=== PATIENT | male | born 1960 | race Caucasian/White ===

== ENCOUNTER 2016-05-14 00:09 | Inpatient (IN) | payer OTHER ==
[~2016-05-14] VITALS: Ht 182.9 cm; Wt 138.8 kg
[~2016-05-14 00:09] MED LIST: CYCL10TA2 PO; HYDR-2672 PO; METH4TAB2 PO; Oxycodone Hcl/Acetaminophen PO; PRED-220 PO
--- NOTE | 2016-05-14 00:41 | PHYS DOC ---
Past Medical History Past Medical History: Other Additional Past Medical Histor: back pain Past Surgical History: No Surgical History Alcohol Use: None Drug Use: None Adult General Chief Complaint Chief Complaint: BACK PAIN OR INJURY HPI HPI Patient is a 55 year old male who presents with complaint of back spasms. Patient states his symptoms started earlier this morning. Patient states that he was doing his normal morning routine and did not make any sudden movements, however he started to have sudden tightness in his low back. Patient denies any falls. Patient states he had history of similar pain 2 years ago and was seen in the emergency department at [facility]. Patient states that due to the severity of symptoms the patient had to be admitted for further treatment. The patient states that he was found to have bone spurring and narrowing of his disc spaces on his workup but did not have any evidence of cord compression. Patient saw Dr. Cameron of physical and rehabilitation medicine who referred him to a neurosurgeon. Patient states that he was told at that time that his condition did not require surgery. After treatment with muscle relaxants and anti-inflammatories, the patient's symptoms resolved and he has not had any further episodes until earlier today. Patient states while at rest his pain as 4 out of 10, however worsens with sudden movements. Patient states that he took 3 [id number] naproxen earlier this evening before arrival with mild improvement in symptoms. Patient denies any radiation of pain and states that is localized in his left lower back. Patient is not experiencing any foot drop, loss of bowel or bladder control, or loss of feeling in his groin. Review of Systems Review of Systems Constitutional: Denies fever or chills [] Eyes: Denies change in visual acuity, redness, or eye pain [] HENT: Denies nasal congestion or sore throat [] Respiratory: Denies cough or shortness of breath [] Cardiovascular: No additional information not addressed in HPI [] GI: Denies abdominal pain, nausea, vomiting, bloody stools or diarrhea [] : Denies dysuria or hematuria [] Musculoskeletal: Back pain [] Integument: Denies rash or skin lesions [] Neurologic: Denies headache, focal weakness or sensory changes [] Endocrine: Denies polyuria or polydipsia [] Current Medications Current Medications Current Medications Medications (Trade) Dose Ordered Sig/Martha Start Time Stop Time Status Last Admin Dose Admin Acetaminophen/ Hydrocodone Bitart (Lortab 7.5/325) 1 tab 1X ONCE 05/14/16 01:45 05/14/16 01:46 DC 05/14/16 01:50 1 TAB Orphenadrine Citrate (Norflex) 60 mg 1X ONCE 05/14/16 00:45 05/14/16 00:46 DC 05/14/16 01:00 60 MG Allergies Allergies Allergies Coded Allergies Type Severity Reaction Last Updated Verified No Known Drug Allergies 03/25/15 No Physical Exam Physical Exam Constitutional: Alert, obese, afebrile, appears in mild to moderate discomfort. [] HENT: Normocephalic, atraumatic, bilateral external ears normal, oropharynx moist, no oral exudates, nose normal. [] Eyes: PERRLA, EOMI, conjunctiva normal, no discharge. [] Neck: Normal range of motion, no tenderness, supple, no stridor. [] Cardiovascular:Heart rate regular rhythm, no murmur [] Lungs & Thorax: Bilateral breath sounds clear to auscultation [] Abdomen: Bowel sounds normal, soft, no tenderness, no masses, no pulsatile masses. [] Skin: Warm, dry, no erythema, no rash. [] Back: Left paraspinous lower lumbar muscle tenderness to palpation with spasm, no midline tenderness, no flank ecchymosis, negative straight leg test. [] Extremities: No tenderness, no cyanosis, no clubbing, ROM intact, no edema. [] Neurologic: Alert and oriented X 3, normal motor function, normal sensory function, no focal deficits noted. [] Current Patient Data Vital Signs Vital Signs Date Time Temp Pulse Resp B/P Pulse Ox O2 Delivery O2 Flow Rate FiO2 05/14/16 02:10 70 177/79 94 Room Air 05/14/16 01:50 16 05/14/16 00:15 98.2 98.2 EKG EKG Not performed [] Radiology/Procedures Radiology/Procedures Not performed [] Course & Med Decision Making Course & Med Decision Making Pertinent Labs and Imaging studies reviewed. (See chart for details) Patient was treated with IM Norflex and and oral Lortab. The patient did not receive any relief in his symptoms. Patient is unable to walk under his own power due to pain. The patient states that this happened to him before and that he is not comfortable going home in his current state as he experienced a great deal of discomfort and pain with his previous episode. Since patient is not showing any response to treatment, the patient will be admitted for further treatment in hospital. Patient was admitted to Dr. Wills and a consult was placed to Dr. Cameron to follow with patient in hospital. Dragon Disclaimer Dragon Disclaimer This electronic medical record was generated, in whole or in part, using a voice recognition dictation system. Departure Departure Impression: Primary Impression: Intractable back pain Disposition: ADMITTED INPATIENT Admitting Physician: Other Condition: STABLE Referrals: NO PCP (PCP) WILLIAM VIDALES MD May 14, 2016 00:41
[2016-05-14] MEDS ORDERED: ORPHENADRINE CITRATE 60 MG/2 ML VIAL. IM ONE (00:45)
[2016-05-14] MEDS ORDERED: HYDROCODONE/APAP 7.5/325MG TABLET. PO ONE (01:45)
[2016-05-14] MEDS ORDERED: ONDANSETRON PF 4 MG/2 ML VIAL. IV PRN ×2 (02:30→14:00)
[2016-05-14] MEDS ORDERED: FENTANYL PF 100 MCG/2 ML VIAL. IV PRN (02:30)
[2016-05-14] MEDS ORDERED: ACETAMINOPHEN 325 MG TABLET. PO PRN ×2 (02:30→14:00)
[2016-05-14] MEDS ORDERED: CYCLOBENZAPRINE 10 MG TABLET. PO PRN (02:30)
[2016-05-14] MEDS: IV NORMAL SALINE 1000ML BAG 1,000 ML IV SCH ×3 (03:05→23:36)
[2016-05-14 03:30] VITALS: BP 155/81
[2016-05-14 07:15] VITALS: BP 89/59
[2016-05-14] MEDS ORDERED: HYDROCODONE/APAP 7.5/325MG TABLET. PO PRN (09:15)
[2016-05-14 10:54] VITALS: BP 148/83
[2016-05-14] MEDS: methylPREDNISolone 4 MG TABLET. PO SCH ×4 (11:15→20:32)
[2016-05-14] MEDS: CYCLOBENZAPRINE 10 MG TABLET. PO SCH ×3 (11:15→21:51)
--- NOTE | 2016-05-14 13:54 | PDOC1 ---
History and Physical Date of Admission Date of Admission 05/14/16 Identification/Chief Complaint Chief Complaint lower back pain Problems: Source Source: Chart review, Patient History of Present Illness History of Present Illness Patient is a 55 year old male who presents with complaint of back spasms. Patient states his symptoms started yesterday. Patient states that he was doing his normal morning routine and did not make any sudden movements, however he started to have sudden tightness in his low back. Patient denies any falls. Patient states he had history of similar pain 2 years ago and was seen in the emergency department at [facility]. since then, no back pain till now. First time of back pain was 10ys ago and he only had two times of episodes before. never had back sx done. Patient states that he took 3 [id number] naproxen earlier this evening before arrival with mild improvement in symptoms. Patient denies any radiation of pain and states that is localized in his left lower back. Patient is not experiencing any foot drop, loss of bowel or bladder control, or loss of feeling in his groin. Past Medical History Cardiovascular: No pertinent hx Pulmonary: No pertinent hx Psych: No pertinent hx Rheumatologic: No pertinent hx Infectious disease: No pertinent hx Renal/: No pertinent hx Past Surgical History Past Surgical History: No pertinent history Family History Family History: No Significant Social History Smoke: No ALCOHOL: none Drugs: None Current Problem List Problem List Problems Medical Problems: (1) Intractable back pain Status: Acute Current Medications Current Medications Current Medications Medications (Trade) Dose Ordered Sig/Martha Start Time Stop Time Status Last Admin Dose Admin Acetaminophen (Tylenol) 650 mg PRN Q4HRS PRN 05/14/16 02:30 05/15/16 02:29 Acetaminophen/ Hydrocodone Bitart (Lortab 7.5/325) 1 tab PRN Q6HRS PRN 05/14/16 09:15 Cyclobenzaprine HCl (Flexeril) 10 mg Q8HRS 05/14/16 10:00 05/14/16 11:15 10 MG Fentanyl Citrate 50 mcg 50 mcg PRN Q2HR PRN 05/14/16 02:30 05/15/16 02:29 Methylprednisolone (Medrol) 4 mg DAILY 05/19/16 09:00 05/19/16 09:01 Ondansetron HCl (Zofran) 4 mg PRN Q8HRS PRN 05/14/16 02:30 05/15/16 02:29 Orphenadrine Citrate (Norflex) 60 mg 1X ONCE 05/14/16 00:45 05/14/16 00:46 DC 05/14/16 01:00 60 MG Sodium Chloride (Iv Sodium Chloride 0.9% 1000ml Bag) 1,000 ml @ 100 mls/hr Q10H 05/14/16 02:30 05/15/16 02:29 05/14/16 13:21 100 MLS/HR Allergies Allergies Allergies Coded Allergies Type Severity Reaction Last Updated Verified No Known Drug Allergies 03/25/15 No ROS Review of System CONSTITUTIONAL: No fever or chills EYES: No recent changes SKIN: No rash or itching CARDIOVASCULAR: No chest pain, syncope, palpitations, or edema RESPIRATORY: No SOB or cough GASTROINTESTINAL: No nausea, vomiting or abdominal pain NEUROLOGICAL: No headaches or weakness ENDOCRINE: No cold or heat intolerance GENITOURINARY: No urgency or frequency of urination MUSCULOSKELETAL: No back pain or joint pain LYMPHATICS: No enlarged lymph nodes PSYCHIATRIC: No anxiety or depression Physical Exam Physical Exam GEN.: No apparent distress. Alert and oriented. HEENT: Head is normocephalic, atraumatic NECK: Supple. LUNGS: Clear to auscultation. HEART: RRR, S1, S2 present. Peripheral pulses intact ABDOMEN: Soft, nontender. Positive bowel sounds. EXTREMITIES: Without any cyanosis. NEUROLOGIC: Normal speech, normal tone PSYCHIATRIC: Normal affect, normal mood. SKIN: No ulcerations Vitals Vitals Vital Signs Date Time Temp Pulse Resp B/P Pulse Ox O2 Delivery O2 Flow Rate FiO2 05/14/16 10:54 96.6 70 20 148/83 96 Room Air 96.6 VTE Prophylaxis Ordered VTE Prophylaxis Devices: Yes VTE Pharmacological Prophylaxi: Yes Assessment/Plan Assessment/Plan 1. acute lower back pain, 2/2 muscle spasm likely 2. h/o back pain 3. obesity BMI 41 plan: 1. dr. Cameron consulted 2. pain control 3. PTOT on medrol as per dr. Cameron , taper labs tmr hope dc in 1-2 ds dvt ppx BLADIMIR GOLDMAN MD May 14, 2016 13:54
[2016-05-14] MEDS ORDERED: MORPHINE SULFATE 4 MG/ML DISP.SYRIN. IV PRN (14:00)
[2016-05-14] MEDS ORDERED: HYDROCODONE/APAP 10/325 TABLET. PO PRN (14:00)
[2016-05-14 15:00] VITALS: BP 137/85
[2016-05-14] MEDS ORDERED: ENOXAPARIN 40 MG/0.4 ML DISP.SYRIN. SQ SCH (15:00)
[2016-05-14 19:00] VITALS: BP 155/73
[2016-05-14 23:00] VITALS: BP 133/76
--- NOTE | 2016-05-15 01:42 | ACF ---
Admission Forms Criteria BACK PAIN Clinical Indications for Admission to Inpatient Care (Place 'X' for any and all applicable criteria): Admission is indicated for ANY ONE of the following (1)(2)(3)(4)(5)(6): [X]I. Inpatient admission required rather than observation care (Also use Back Pain: Observation Care as appropriate) because of ANY ONE of the following [ ]a) Severe pain requiring acute inpatient management [ ]b) Immediate inpatient surgery [X]c) Other condition, treatment or monitoring requiring inpatient admission [ ]II. Spine fracture with significant damage or threat of damage to vertebral column or spinal cord [ ]III. Progressive or severe neurologic deficit [ ]IV. Suspected spinal infection (e.g., epidural abscess, vertebral osteomyelitis)(10) [ ]V. Suspected cause requires inpatient treatment (eg, aortic dissection) [ ]. Cauda equina syndrome as indicated by ANY ONE of the following (9): [ ]a) Bowel dysfunction [ ]b) Bladder dysfunction [ ]c) Saddle anesthesia [ ]d) Neurologic abnormality suggesting cauda equina impingement Extended stay beyond goal length of stay may be needed for (3)(25): [ ]a) Spinal cord compression from stenosis, disk, or tumor (8)(9) [ ]b) Traumatic or pathologic vertebral fracture (33) [ ]c) Vertebral infection(10) [ ]d) Severe pain that is difficult to control [ ]e) Older patients(65 years or older) The original [employer] content created by [employer] has been revised. The portions of the content which have been revised are identified through the use of italic text or in bold, and [facility] has neither reviewed nor approved the modified material. All other unmodified content is copyright [employer]. Please see references footnoted in the original [facility] edition 2016 Admission Criteria Met?: Yes DIONISIO AVERY May 15, 2016 01:42
[2016-05-15 02:53] VITALS: BP 99/53
[2016-05-15] MEDS: CYCLOBENZAPRINE 10 MG TABLET. PO SCH ×2 (05:45→13:47)
[2016-05-15 06:05] LABS: BASO % 0 % (0-3); EOS % 0 % (0-3); HEMATOCRIT 43.5 % (39.0-53.0); HEMOGLOBIN 14.5 g/dL (13.0-17.5); LYMPH # 1.4 x10^3/uL (1.0-4.8); LYMPH % 9 % (24-48); MEAN CORPUSCULAR HEMOGLOBIN 31 pg (25-35); MEAN CORPUSCULAR HGB CONC 33 g/dL (31-37); MEAN CORPUSCULAR VOLUME 92 fL (79-100); MONO % 4 % (0-9); NEUT % 87 % (31-73); PLATELET COUNT 179 x10^3/uL (140-400); RED BLOOD COUNT 4.73 x10^6/uL (4.30-5.70); WHITE BLOOD COUNT 14.7 x10^3/uL (4.0-11.0)
[2016-05-15 06:39] LABS: CALCIUM 8.5 mg/dL (8.5-10.1); CREATININE 0.8 mg/dL (0.7-1.3); GFR 101.1; POTASSIUM 4.6 mmol/L (3.5-5.1)
[2016-05-15 07:00] VITALS: BP 146/83
--- NOTE | 2016-05-15 08:33 | CONS ---
DATE OF CONSULTATION: 05/14/2016 ATTENDING PHYSICIAN: Dr. Wills. The patient was seen at the request of Dr. Wills for rehab evaluation. HISTORY OF PRESENT ILLNESS: This is a 55-year-old, right-handed male, known to me in the past. The patient with lower back pain from degenerative disk disease at L5-S1 and herniated disk at L4-L5. I saw him in 2014. He had seen Dr. Macdonald and no need for any surgical treatment. He got better. The patient started having lower back muscles spasm with associated pain without any specific injury starting on 05/13/2016. The patient denies any radiation of pain to the extremities or any trouble with his bowel or bladder control. He had significant difficulty to get around, so he was admitted through the Emergency Room last night. ALLERGIES: The patient is not known allergic to any medication. PHYSICAL EXAMINATION: Today revealed a middle-aged male. He is alert, oriented to time, place, person and circumstance, and follows commands appropriately. Moves all 4 extremities voluntarily where he had 4+/5 grade muscle strength and deep tendon reflexes are 2+ and symmetrical and he had equal perception of touch and pinprick sensation bilaterally. He had painful limited movements of his lumbar spine with lumbar paraspinal muscle spasm and minimal tenderness to palpation over sacroiliac joint area and straight-leg raising test is negative bilaterally. He is independent with bed mobility and transfers despite pain and he walked using a roller walker with lumbar corset on. His skin is intact at this time. ASSESSMENT: Mobility and self-care limitation from ____ lower back pain from degenerative disk disease of lumbar vertebrae, without any clinical evidence of ongoing lumbar radiculopathy. RECOMMENDATION: To start him back on steroid Dosepak and make Flexeril routinely and continue hydrocodone. I have reviewed with him home exercise program, continue using lumbar corset while up. If he feels comfortable, to let him go home this evening or tomorrow to be followed on outpatient basis. To hold off MRI scan at present time as he is not having any radiating pain. Dr. Wills, appreciate asking me to participate in the care of this interesting patient. I will be glad to follow him with you as needed for his rehabilitation. JULIAN COLLAZO MD DR: USAMA/hailey JOB#: [id number] / [id number]
[2016-05-15] MEDS: methylPREDNISolone 4 MG TABLET. PO SCH ×3 (08:35→13:01)
--- NOTE | 2016-05-15 10:01 | PDOC ---
PROGRESS NOTES Subjective Subjective He admits continued low back pain interfering with his mobility and c/o swelling of his body and face. Objective Objective Vital Signs Date Time Temp Pulse Resp B/P Pulse Ox O2 Delivery O2 Flow Rate FiO2 05/15/16 07:00 97.5 73 16 146/83 95 Room Air 97.5 Intake and Output 05/15/16 07:00 Intake Total 2270 ml Balance 2270 ml Intake Oral 2270 ml # Voids 8 Physical Exam Physical Exam He had tenderness to palpation over left sacroiliac joint and painfully limited movements of low back and no change with his neurological examination. Assessment Assessment Problems Medical Problems: (1) Intractable back pain Status: Acute Plan Plan of Care To obtain follow up mri scan and depending on discharge to home after words. He is hesitant about injections as they irritated his back more 13 months ago. Comment Review of Relevant I have reviewed the following items monty (where applicable) has been applied. Labs Laboratory Tests Test 05/15/16 05:35 White Blood Count 14.7x10^3/uL (4.0-11.0) Red Blood Count 4.73x10^6/uL (4.30-5.70) Hemoglobin 14.5g/dL (13.0-17.5) Hematocrit 43.5% (39.0-53.0) Mean Corpuscular Volume 92fL (79-100) Mean Corpuscular Hemoglobin 31pg (25-35) Mean Corpuscular Hemoglobin Concent 33g/dL (31-37) Red Cell Distribution Width 13.0% (11.5-14.5) Platelet Count 179x10^3/uL (140-400) Neutrophils (%) (Auto) 87% (31-73) Lymphocytes (%) (Auto) 9% (24-48) Monocytes (%) (Auto) 4% (0-9) Eosinophils (%) (Auto) 0% (0-3) Basophils (%) (Auto) 0% (0-3) Neutrophils # (Auto) 12.7x10^3uL (1.8-7.7) Lymphocytes # (Auto) 1.4x10^3/uL (1.0-4.8) Monocytes # (Auto) 0.5x10^3/uL (0.0-1.1) Eosinophils # (Auto) 0.0x10^3/uL (0.0-0.7) Basophils # (Auto) 0.0x10^3/uL (0.0-0.2) Sodium Level 142mmol/L (136-145) Potassium Level 4.6mmol/L (3.5-5.1) Chloride Level 107mmol/L (98-107) Carbon Dioxide Level 26mmol/L (21-32) Anion Gap 9 (6-14) Blood Urea Nitrogen 12mg/dL (8-26) Creatinine 0.8mg/dL (0.7-1.3) Estimated GFR (Cockcroft-Gault) 101.1 Glucose Level 174mg/dL (70-99) Calcium Level 8.5mg/dL (8.5-10.1) Laboratory Tests Test 05/15/16 05:35 White Blood Count 14.7x10^3/uL (4.0-11.0) Red Blood Count 4.73x10^6/uL (4.30-5.70) Hemoglobin 14.5g/dL (13.0-17.5) Hematocrit 43.5% (39.0-53.0) Mean Corpuscular Volume 92fL (79-100) Mean Corpuscular Hemoglobin 31pg (25-35) Mean Corpuscular Hemoglobin Concent 33g/dL (31-37) Red Cell Distribution Width 13.0% (11.5-14.5) Platelet Count 179x10^3/uL (140-400) Neutrophils (%) (Auto) 87% (31-73) Lymphocytes (%) (Auto) 9% (24-48) Monocytes (%) (Auto) 4% (0-9) Eosinophils (%) (Auto) 0% (0-3) Basophils (%) (Auto) 0% (0-3) Neutrophils # (Auto) 12.7x10^3uL (1.8-7.7) Lymphocytes # (Auto) 1.4x10^3/uL (1.0-4.8) Monocytes # (Auto) 0.5x10^3/uL (0.0-1.1) Eosinophils # (Auto) 0.0x10^3/uL (0.0-0.7) Basophils # (Auto) 0.0x10^3/uL (0.0-0.2) Sodium Level 142mmol/L (136-145) Potassium Level 4.6mmol/L (3.5-5.1) Chloride Level 107mmol/L (98-107) Carbon Dioxide Level 26mmol/L (21-32) Anion Gap 9 (6-14) Blood Urea Nitrogen 12mg/dL (8-26) Creatinine 0.8mg/dL (0.7-1.3) Estimated GFR (Cockcroft-Gault) 101.1 Glucose Level 174mg/dL (70-99) Calcium Level 8.5mg/dL (8.5-10.1) Medications Current Medications Orphenadrine Citrate (Norflex) 60 mg 1X ONCE IM Last administered on 01:00; Start 05/14/16 at 00:45; Stop 05/14/16 at 00:46; Status DC Acetaminophen/ Hydrocodone Bitart (Lortab 7.5/325) 1 tab 1X ONCE PO Last administered on 05/14/16 01:50; Start 05/14/16 at 01:45; Stop 05/14/16 at 01:46 ; Status DC Ondansetron HCl (Zofran) 4 mg PRN Q8HRS PRN IV NAUSEA/VOMITING; Start 05/14/16 at 02:30; Stop 05/15/16 at 02:29; Status DC Fentanyl Citrate 50 mcg 50 mcg PRN Q2HR PRN IV PAIN; Start 05/14/16 at 02:30; Stop 05/15/16 at 02:29; Status DC Sodium Chloride (Iv Sodium Chloride 0.9% 1000ml Bag) 1,000 ml @ 100 mls/hr Q10H IV Last administered on 05/14/16 23:36; Start 05/14/16 at 02:30; Stop at 02:29; Status DC Acetaminophen (Tylenol) 650 mg PRN Q4HRS PRN PO FEVER; Start 05/14/16 at 02:30 ; Stop 05/15/16 at 02:29; Status DC Cyclobenzaprine HCl (Flexeril) 10 mg PRN Q8HRS PRN PO MUSCLE SPASMS Last administered on 05/14/16 04:14; Start 05/14/16 at 02:30; Stop 05/14/16 at 10:00 ; Status DC Cyclobenzaprine HCl (Flexeril) 10 mg Q8HRS PO Last administered on 05/15/16 05 :45; Start 05/14/16 at 10:00 Acetaminophen/ Hydrocodone Bitart (Lortab 7.5/325) 1 tab PRN Q6HRS PRN PO moderate pain Last administered on 05/14/16 21:51; Start 05/14/16 at 09:15 Methylprednisolone (Medrol) 8 mg BID PO Last administered on 05/14/16 20:32; Start 05/14/16 at 10:00; Stop 05/14/16 at 21:01; Status DC Methylprednisolone (Medrol) 4 mg BIDPCLD PO Last administered on 05/14/16 16: 46; Start 05/14/16 at 12:30; Stop 05/14/16 at 17:31; Status DC Methylprednisolone (Medrol) 4 mg TIDPC PO Last administered on 05/15/16 08:35 ; Start 05/15/16 at 08:30; Stop 05/15/16 at 17:31 Methylprednisolone (Medrol) 8 mg QHS PO ; Start 05/15/16 at 21:00; Stop at 21:01 Methylprednisolone (Medrol) 4 mg QIDAFTMEAL PO ; Start 05/16/16 at 09:00; Stop 05/16/16 at 21:01 Methylprednisolone (Medrol) 4 mg TID PO ; Start 05/17/16 at 09:00; Stop at 21:01 Methylprednisolone (Medrol) 4 mg BID PO ; Start 05/18/16 at 09:00; Stop at 21:01 Methylprednisolone (Medrol) 4 mg DAILY PO ; Start 05/19/16 at 09:00; Stop at 09:01 Acetaminophen/ Hydrocodone Bitart (Lortab 10/325) 1 tab PRN Q6HRS PRN PO ; Start 05/14/16 at 14:00; Stop 05/14/16 at 14:00; Status DC Acetaminophen (Tylenol) 650 mg PRN Q6HRS PRN PO MILD PAIN / TEMP; Start at 14:00 Ondansetron HCl (Zofran) 4 mg PRN Q6HRS PRN IV NAUSEA/VOMITING; Start 05/14/16 at 14:00 Morphine Sulfate 4 mg PRN Q2HR PRN IV PAIN; Start 05/14/16 at 14:00 Enoxaparin Sodium (Lovenox 40mg Syringe) 40 mg Q24H SQ ; Start 05/14/16 at 15:00 Active Scripts Active Cyclobenzaprine Hcl 10 Mg Tablet 10 Mg PO PRN Q6HRS PRN Reported Prednisone 10 Mg Tablet 10 Mg PO DAILY 5 Days Prednisone 10 Mg Tablet 20 Mg PO DAILY 3 Days Prednisone 10 Mg Tablet 30 Mg PO DAILY 1 Days Medrol (Methylprednisolone) 4 Mg Tab.ds.pk 1 Pkg PO UD Hydrocodone-Apap 10-325 (Hydrocodone Bit/Acetaminophen) 1 Each Tablet 1 Tab PO PRN Q6HRS PRN Vitals/I & O Vital Sign - Last 24 Hours 05/14/16 05/14/16 05/14/16 05/14/16 10:54 15:00 19:00 20:05 Temp 96.6 96.8 97.7 96.6 96.8 97.7 Pulse 70 71 81 Resp 20 18 21 B/P 148/83 137/85 155/73 Pulse Ox 96 95 94 O2 Delivery Room Air Room Air Room Air Room Air 05/14/16 05/14/16 05/14/16 05/15/16 21:51 22:58 23:00 02:53 Temp 97.7 97.3 97.7 97.3 Pulse 76 71 Resp B/P 133/76 99/53 Pulse Ox 94 93 93 95 O2 Delivery Room Air Room Air Room Air Room Air 05/15/16 07:00 Temp 97.5 97.5 Pulse 73 Resp 16 B/P 146/83 Pulse Ox 95 O2 Delivery Room Air Intake and Output 05/14/16 05/14/16 05/15/16 15:00 23:00 07:00 Intake Total 760 ml 860 ml 650 ml Balance 760 ml 860 ml 650 ml JULIAN COLLAZO MD May 15, 2016 10:01
[2016-05-15 10:47] VITALS: BP 162/94
--- NOTE | 2016-05-15 11:18 | RAD ---
PROCEDURE MRI lumbar spine without contrast. HISTORY Low back pain with spasms, left leg radiculopathy, left lumbar radiculitis TECHNIQUE Sagittal and axial T1 and T2 and sagittal STIR images were acquired of the lumbar spine. Contrast: None COMPARISON March 26, 2015 FINDINGS Lumbar vertebral body stature and AP alignment are preserved. Conus terminates normally L1. There is mild degenerative disc disease at L4-L5 and L5-S1 and mild disc desiccation L2-3. There is no significant focal marrow edema. There is again posterior annular tear L4-5. L2-3: Spinal canal and neural foramina are adequate. L3-4: There is again mild facet hypertrophic change and buckling of the ligamentum flavum. Spinal canal and neural foramina remain adequate. L4-5: There is again mild facet hypertrophic change and buckling of the ligamentum flavum. There is again very shallow extrusion extending below the intervertebral disc space more centrally without significant focal neural impingement. Spinal canal remains adequate. Neural foramina are adequate. L5-S1: There is again prominence of epidural fat, preserved central subarachnoid space. Spinal canal and neural foramina are adequate. IMPRESSION 1. Findings are similar compared with the February 2015 exam. There is no new significant lumbar spinal stenosis. There is again very shallow posterior central extrusion extending below the L4-5 intervertebral disc space without significant neural impingement. There is again mild degenerative disc disease at L4-5 and L5-S1. Electronically signed by: Sergio Mckoy MD (May 15, 2016 11:17:27)
[2016-05-15] MEDS ORDERED: HYDR-2762 PO (11:25)
[2016-05-15] MEDS ORDERED: CYCL10TA2 PO (11:25)
--- NOTE | 2016-05-15 12:27 | PDOC3 ---
Discharge Summary [facility] Date of Admission: May 14, 2016 Discharge Date: May 15, 2016 Admitting Diagnosis 1. acute lower back pain, 2/2 muscle spasm likely 2. h/o back pain with mild lumbar DJD 3. obesity BMI 41 Problems: Final Diagnosis Problems Medical Problems: (1) Intractable back pain Status: Acute CONSULTS dr. narayan Brief Hospital Course Patient is a 55 year old male who presents with complaint of back spasms. Patient states his symptoms started yesterday. Patient states that he was doing his normal morning routine and did not make any sudden movements, however he started to have sudden tightness in his low back. Patient denies any falls. Patient states he had history of similar pain 2 years ago and was seen in the emergency department at [facility]. since then, no back pain till now. First time of back pain was 10ys ago and he only had two times of episodes before. never had back sx done. MRI similar to before with mild DJD. pt feels better with flexiril. dc home with felxiril and lortab. dc time 35min GEN.: No apparent distress. Alert and oriented. HEENT: Head is normocephalic, atraumatic NECK: Supple. LUNGS: Clear to auscultation. HEART: RRR, S1, S2 present. Peripheral pulses intact ABDOMEN: Soft, nontender. Positive bowel sounds. EXTREMITIES: Without any cyanosis. NEUROLOGIC: Normal speech, normal tone PSYCHIATRIC: Normal affect, normal mood. SKIN: No ulcerations Patient History: FH: breast cancer G8 SISTER Problems: Disposition home CONDITION AT DISCHARGE: Improved Diet regular Discontinued Medications Hydrocodone Bit/Acetaminophen (Hydrocodone-Apap 10-325 ) 1 TAB PO PRN Q6HRS PRN PRN PAIN (Reported) Methylprednisolone (Medrol) 1 PKG PO UD (Reported) Prednisone (Prednisone) 30 MG PO DAILY (Reported) Prednisone (Prednisone) 20 MG PO DAILY (Reported) Prednisone (Prednisone) 10 MG PO DAILY (Reported) Follow Up pcp in 2 weeks BLADIMIR GOLDMAN MD May 15, 2016 12:27
[2016-05-15] MEDS ORDERED: ENOXAPARIN 40 MG/0.4 ML DISP.SYRIN. SQ SCH (21:00)
[2016-05-15] MEDS ORDERED: methylPREDNISolone 4 MG TABLET. PO SCH (21:00)
[2016-05-16] MEDS ORDERED: methylPREDNISolone 4 MG TABLET. PO SCH (09:00)
[2016-05-17] MEDS ORDERED: methylPREDNISolone 4 MG TABLET. PO SCH (09:00)
[2016-05-18] MEDS ORDERED: methylPREDNISolone 4 MG TABLET. PO SCH (09:00)
[2016-05-19] MEDS ORDERED: methylPREDNISolone 4 MG TABLET. PO SCH (09:00)
== END 2016-05-15 13:55 | disposition home or self-care (01) | DRG 556 ==
LOC: ER 00:09 → 6 SOUTH 02:15
PROVIDERS: ADMIT Internal Medicine Hematology & Oncology; ATTEND Internal Medicine Hematology & Oncology
DX: M62.838 Other muscle spasm (principal); Z68.41 Body mass index [BMI] 40.0-44.9, adult; M25.70 Osteophyte, unspecified joint; E66.9 Obesity, unspecified; M47.816 Spondylosis without myelopathy or radiculopathy, lumbar region; M51.37 Other intervertebral disc degeneration, lumbosacral region; Z80.3 Family history of malignant neoplasm of breast
CPT/HCPCS: 36415; 72148; 80048; 85027; 96372; J2360; J7030; J7509; 97535; 99285-25

== ENCOUNTER 2017-03-16 21:53 | Inpatient (IN) | payer OTHER ==
[~2017-03-16] VITALS: Ht 182.9 cm; Wt 137.9 kg
[~2017-03-16 21:53] MED LIST changes: -HYDR-2672 PO; +HYDR-2762 PO; +HYDR-2766 PO
--- NOTE | 2017-03-16 22:39 | PHYS DOC ---
Past Medical History Past Medical History: Cancer, Other Additional Past Medical Histor: CHRONIC BACK PAIN, SKIN CA Past Surgical History: Other Additional Past Surgical Histo: SKIN CA L EAR Alcohol Use: Occasionally Drug Use: None Adult General Chief Complaint Chief Complaint: BACK PAIN - NO INJURY [facility] HPI Patient is a 56 year old male presents to the emergency department stating that he has been having back pain and discomfort. Patient states that he was seen here approximately one year ago and was seen twice in one day and then return to be admitted. He states when he returned to be admitted he had to come by ambulance because he could not get up and ambulate. Patient states he originally has an injury from many years ago when he tried to catch his 2-year- old daughter when she fell out of a cart. Patient states that he has some issues between the L1-L3. He states that he has had MRIs completed here. He states that he had seen Dr. Cameron when he was admitted in April. Patient states that he was told that he needed to follow-up with Dr. Dunn by friends and family. Patient states that he had not followed up with Shaun as he has not had any pain and discomfort since then. Patient states that he can just turn or move wrong and the pain will developed. He states that he took 3 Flexeril today as well as hydrocodone for the pain and discomfort with no relief of the muscle spasms. Patient states he presents here to the emergency department to prevent the pain from becoming worse and is requesting admission into the hospital. Patient denies any loss of bowel or bladder. He is denying any numbness or tingling down into his lower extremities. Review of Systems Review of Systems Constitutional: Denies fever or chills [] Eyes: Denies change in visual acuity, redness, or eye pain [] HENT: Denies nasal congestion or sore throat [] Respiratory: Denies cough or shortness of breath [] Cardiovascular: No additional information not addressed in HPI [] GI: Denies abdominal pain, nausea, vomiting, bloody stools or diarrhea [] : Denies dysuria or hematuria [] Musculoskeletal: back pain denies joint pain [] Integument: Denies rash or skin lesions [] Neurologic: Denies headache, focal weakness or sensory changes [] Endocrine: Denies polyuria or polydipsia [] All other systems were reviewed and found to be within normal limits, except as documented in this note. Allergies Allergies Allergies Coded Allergies Type Severity Reaction Last Updated Verified No Known Drug Allergies 03/25/15 No Physical Exam Physical Exam Constitutional: Well developed, well nourished, no acute distress, non-toxic appearance. [] HENT: Normocephalic, atraumatic, bilateral external ears normal, oropharynx moist, no oral exudates, nose normal. [] Eyes: PERRLA, EOMI, conjunctiva normal, no discharge. [] Neck: Normal range of motion, no tenderness, supple, no stridor. [] Cardiovascular:Heart rate regular rhythm, no murmur [] Lungs & Thorax: Bilateral breath sounds clear to auscultation [] Skin: Warm, dry, no erythema, no rash. [] Back: No tenderness Extremities: No tenderness, no cyanosis, no clubbing, ROM intact, no edema. Peripheral pulse 2+ Patient with good sensation noted to bilateral lower extremities. Neurologic: Alert and oriented X 3, normal motor function, normal sensory function, no focal deficits noted. [] Psychologic: Affect normal, judgement normal, mood normal. [] Current Patient Data Vital Signs Vital Signs Date Time Temp Pulse Resp B/P (MAP) Pulse Ox O2 Delivery O2 Flow Rate FiO2 03/16/17 22:00 97.8 80 18 170/92 (118) 97 Room Air 97.8 EKG EKG [] Radiology/Procedures Radiology/Procedures [] Course & Med Decision Making Course & Med Decision Making Pertinent Labs and Imaging studies reviewed. (See chart for details) Spoke with Dr Millard about patients admission. Patient will have basic lab obtained including UA. [place] will be provided for him on the floor as well as consult to Shaun. Patient will be provided with solu medrol here in the emergency department as well as morphine. Orders have been placed completed. [] Dragon Disclaimer Dragon Disclaimer This electronic medical record was generated, in whole or in part, using a voice recognition dictation system. Departure Departure Impression: Primary Impression: Intractable back pain Disposition: ADMITTED INPATIENT Admitting Physician: Awais Millard Condition: STABLE Referrals: NO PCP (PCP) KALPANA AYALA [employer] Mar 16, 2017 22:39
[2017-03-16] MEDS ORDERED: MORPHINE SULFATE 2 MG/ML DISP.SYRIN. IV ONE (22:45)
[2017-03-16] MEDS ORDERED: methylPREDNISolone SOD SUCC PF 125 MG/2 ML VIAL. IV ONE (22:45)
[2017-03-16 22:50] LABS: BASO # 0.1 x10^3/uL (0.0-0.2); BASO % 2 % (0-3); EOS % 2 % (0-3); HEMATOCRIT 43.5 % (39.0-53.0); LYMPH # 2.4 x10^3/uL (1.0-4.8); LYMPH % 26 % (24-48); MEAN CORPUSCULAR HEMOGLOBIN 31 pg (25-35); MEAN CORPUSCULAR HGB CONC 35 g/dL (31-37); MEAN CORPUSCULAR VOLUME 90 fL (79-100); MONO % 9 % (0-9); NEUT % 62 % (31-73); PLATELET COUNT 198 x10^3/uL (140-400); RED BLOOD COUNT 4.84 x10^6/uL (4.30-5.70); RED CELL DISTRIBUTION WIDTH 13.1 % (11.5-14.5); WHITE BLOOD COUNT 9.5 x10^3/uL (4.0-11.0)
[2017-03-16 22:52] LABS: BILIRUBIN,URINE NEGATIVE (NEG); GLUCOSE,URINE NEGATIVE (NEG); NITRITE,URINE NEGATIVE (NEG); PROTEIN,URINE NEGATIVE (NEG-TRACE); UROBILINOGEN,URINE 0.2 mg/dL (0.2 mg/dL)
[2017-03-16 23:00] LABS: BACTERIA,URINE 0 /HPF (0-FEW); RBC,URINE 0 /HPF (0-2); SQUAMOUS EPITHELIAL CELL,UR OCC /LPF; WBC,URINE 0 /HPF (0-4)
[2017-03-16 23:02] LABS: CALCIUM 8.8 mg/dL (8.5-10.1); CREATININE 0.9 mg/dL (0.7-1.3); GFR 87.9; POTASSIUM 3.7 mmol/L (3.5-5.1)
[2017-03-16 23:08] LABS: ALBUMIN 3.7 g/dL (3.4-5.0); ALBUMIN/GLOBULIN RATIO 1.1 (1.0-1.7); TOTAL BILIRUBIN 0.5 mg/dL (0.2-1.0); TOTAL PROTEIN 7.2 g/dL (6.4-8.2)
[2017-03-16 23:50] VITALS: BP 155/94
[2017-03-17 03:00] VITALS: BP 152/88
[2017-03-17] MEDS: CYCLOBENZAPRINE 10 MG TABLET. PO PRN ×3 (05:57→22:34)
[2017-03-17 07:00] VITALS: BP 129/78
--- NOTE | 2017-03-17 09:41 | PDOC ---
Provider Note Provider Note patient seen and examined severe low back pain MRI ordered will follow full consult to follow EMANUEL ZAPIEN MD Mar 17, 2017 09:40
[2017-03-17 11:00] VITALS: BP 137/90
[2017-03-17] MEDS: HYDROcodone/APAP 7.5/325MG 1 TAB TABLET PO PRN ×2 (13:26→22:35)
--- NOTE | 2017-03-17 14:21 | HP ---
ADMIT DATE: 03/17/2017 CHIEF COMPLAINT: Back pain. HISTORY OF PRESENT ILLNESS: The patient is a pleasant 56-year-old male who has chronic back pain. Once again, his back pain has flared. He tried increasing his home meds, but that is not working. He came in by ambulance because he could not walk. He has injury to his back 2 years ago when he tried to catch his 2-year-old daughter when she fell off a cart. He has issues at L1-L3. I have discussed the case with ER physician. We are going to admit the patient and consult Dr. Macdonald. PAST MEDICAL HISTORY: Chronic back pain, skin cancer. ALLERGIES: None. FAMILY HISTORY: Diabetes. SOCIAL HISTORY: Does not drink, smoke or take drugs. 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 MEDICATIONS: Reviewed. REVIEW OF SYSTEMS: GENERAL: No history of weight change, weakness or fevers. SKIN: No bruising, hair changes or rashes. EYES: No blurred, double or loss of vision. NOSE AND THROAT: No history of nosebleeds, hoarseness or sore throat. HEART: No history of palpitations, chest pain or shortness of breath on exertion. LUNGS: Denies cough, hemoptysis, wheezing or shortness of breath. GASTROINTESTINAL: Denies changes in appetite, nausea, vomiting, diarrhea or constipation. GENITOURINARY: No history of frequency, urgency, hesitancy or nocturia. NEUROLOGIC: Denies history of numbness, tingling, tremor or weakness. PSYCHIATRIC: No history of panic, anxiety or depression. ENDOCRINE: No history of heat or cold intolerance, polyuria or polydipsia. EXTREMITIES: Denies muscle weakness, joint pain, pain on walking or stiffness. MUSCULOSKELETAL: He complains of back pain. PHYSICAL EXAMINATION: VITAL SIGNS: Temperature afebrile, pulse 70, respirations 20, blood pressure 152/88, O2 sat 94%. GENERAL: He is alert, cooperative, complaining of back pain. HEART: S1, S2. LUNGS: Clear. ABDOMEN: Soft, positive bowel sounds, distended. EXTREMITIES: No edema. SKIN: No rashes. ENDOCRINE: No thyromegaly. LYMPHATICS: No cervical nodes. HEMATOPOIETIC: No bruising. NEUROLOGICAL: He is alert and oriented, moving all extremities. He does have straight leg testing positive on the left. LABORATORY DATA: Hematology normal. Electrolytes are normal. ASSESSMENT AND PLAN: Radiculopathy. The patient has been admitted. We will consult Dr. Macdonald, PT, OT, p.r.n. narcotics. Continue home medicines. ASHWINI BRUNNER DO DR: PARADISE/hailey JOB#: [id number] / [id number]
[2017-03-17 15:00] VITALS: BP 141/85
--- NOTE | 2017-03-17 15:56 | RAD ---
MRI Lumbar Spine without contrast History: Intractable back pain, spasms Technique: Multiplanar, multi sequential noncontrast MR imaging was performed of the lumbar spine. Contrast: None Comparison: May 15, 2016 Findings: Lumbar vertebral body stature and AP alignment are maintained. Conus terminates at L1. There is again mild degenerative disc disease L4-5 and L5-S1, mild disc desiccation at L2-3. There is no new significant marrow edema. There is similar posterior annular tear L4-5. L2-L3: Spinal canal and neural foramina are adequate. L3-L4: Neural foramina and spinal canal are adequate. There is again mild facet degenerative change. L4-L5: There is again facet hypertrophic change and minimal buckling of the ligamentum flavum. Spinal canal is overall adequate. There is again minimal disc osteophyte complex. Previously seen small extrusion centrally is not visualized. Neural foramina are overall adequate. There is very minimal disc osteophyte complex in the inferior right neural foramen. L5-S1: There is again epidural lipomatosis. There is no new displacement of the descending S1 nerve roots. Neural foramina remain adequate. Impression: 1. There is again mild degenerative disc disease at L4-5 and L5-S1. There is no new lumbar spinal stenosis or significant lumbar neural foramina compromise. Electronically signed by: Gilmar Mckoy MD (03/17/2017 3:53 PM) [email or web address]
[2017-03-17 19:20] VITALS: BP 153/95
[2017-03-17 23:00] VITALS: BP 128/84
[2017-03-18 03:00] VITALS: BP 131/79
[2017-03-18] MEDS: CYCLOBENZAPRINE 10 MG TABLET. PO PRN ×2 (06:30→14:17)
[2017-03-18] MEDS: HYDROcodone/APAP 7.5/325MG 1 TAB TABLET PO PRN ×4 (06:30→18:02)
[2017-03-18 07:00] VITALS: BP 137/80
[2017-03-18 11:28] VITALS: BP 143/89
[2017-03-18 15:00] VITALS: BP 131/80
--- NOTE | 2017-03-18 15:31 | PDOC ---
PROGRESS NOTES Chief Complaint Chief Complaint Back Pain History of Present Illness History of Present Illness Pt sitting upright, NAD Pt eating well Discussed results of Lumbar MRI, mild DDD L4-5, L5-S1 No stenosis Vitals Vitals Vital Signs Date Time Temp Pulse Resp B/P (MAP) Pulse Ox O2 Delivery O2 Flow Rate FiO2 03/18/17 14:18 16 Room Air 03/18/17 11:28 97.5 60 143/89 (107) 97 97.5 Physical Exam General: Alert, Oriented X3, Cooperative, No acute distress Heart: Regular rate, Normal S1, No murmurs Lungs: Clear Abdomen: Normal bowel sounds Extremities: No clubbing, No cyanosis Review of Systems Review of Systems General: Denies Hunger, Fatigue CV: Denies Chest Pain, Palpitations Assessment and Plan Assessmemt and Plan Problems Medical Problems: (1) Intractable back pain Status: Acute Plan: Probable DC if agreeable with Surgery Awaiting further input from Surgery Advance Diet Recheck Labs Continue Home Meds Continue PT/OT Problems: Comment Review of Relevant I have reviewed the following items monty (where applicable) has been applied. Labs Laboratory Tests Test 03/16/17 22:30 03/16/17 22:40 Urine Collection Type Unknown Urine Color Yellow Urine Clarity Clear Urine pH 6.0 Urine Specific [place] 1.015 Urine Protein Negative mg/dL (NEG-TRACE) Urine Glucose (UA) Negative mg/dL (NEG) Urine Ketones (Stick) Negative mg/dL (NEG) Urine Blood Negative (NEG) Urine Nitrite Negative (NEG) Urine Bilirubin Negative (NEG) Urine Urobilinogen Dipstick 0.2 mg/dL (0.2 mg/dL) Urine Leukocyte Esterase Negative (NEG) Urine RBC 0 /HPF (0-2) Urine WBC 0 /HPF (0-4) Urine Squamous Epithelial Cells Occ /LPF Urine Bacteria 0 /HPF (0-FEW) Urine Mucus Mod /LPF White Blood Count 9.5 x10^3/uL (4.0-11.0) Red Blood Count 4.84 x10^6/uL (4.30-5.70) Hemoglobin 15.0 g/dL (13.0-17.5) Hematocrit 43.5 % (39.0-53.0) Mean Corpuscular Volume 90 fL (79-100) Mean Corpuscular Hemoglobin 31 pg (25-35) Mean Corpuscular Hemoglobin Concent 35 g/dL (31-37) Red Cell Distribution Width 13.1 % (11.5-14.5) Platelet Count 198 x10^3/uL (140-400) Neutrophils (%) (Auto) 62 % (31-73) Lymphocytes (%) (Auto) 26 % (24-48) Monocytes (%) (Auto) 9 % (0-9) Eosinophils (%) (Auto) 2 % (0-3) Basophils (%) (Auto) 2 % (0-3) Neutrophils # (Auto) 5.8 x10^3uL (1.8-7.7) Lymphocytes # (Auto) 2.4 x10^3/uL (1.0-4.8) Monocytes # (Auto) 0.9 x10^3/uL (0.0-1.1) Eosinophils # (Auto) 0.2 x10^3/uL (0.0-0.7) Basophils # (Auto) 0.1 x10^3/uL (0.0-0.2) Sodium Level 140 mmol/L (136-145) Potassium Level 3.7 mmol/L (3.5-5.1) Chloride Level 105 mmol/L (98-107) Carbon Dioxide Level 28 mmol/L (21-32) Anion Gap 7 (6-14) Blood Urea Nitrogen 14 mg/dL (8-26) Creatinine 0.9 mg/dL (0.7-1.3) Estimated GFR (Cockcroft-Gault) 87.9 BUN/Creatinine Ratio 16 (6-20) Glucose Level 121 mg/dL (70-99) Calcium Level 8.8 mg/dL (8.5-10.1) Total Bilirubin 0.5 mg/dL (0.2-1.0) Aspartate Amino Transf (AST/SGOT) 15 U/L (15-37) Alanine Aminotransferase (ALT/SGPT) 22 U/L (16-63) Alkaline Phosphatase 112 U/L (46-116) Total Protein 7.2 g/dL (6.4-8.2) Albumin 3.7 g/dL (3.4-5.0) Albumin/Globulin Ratio 1.1 (1.0-1.7) Medications Current Medications Methylprednisolone Sodium Succinate (SOLU-Medrol 125MG VIAL) 125 mg 1X ONCE IV Last administered on 03/16/17 22:50; Start 03/16/17 at 22:45; Stop at 22:46; Status DC Acetaminophen/ Hydrocodone Bitart (Lortab 7.5/325) 1 tab PRN Q4HRS PRN PO pain Last administered on 03/18/17 14:18; Start 03/16/17 at 22:30 Cyclobenzaprine HCl (Flexeril) 10 mg PRN Q8HRS PRN PO muscle spasm Last administered on 03/18/17 14:17; Start 03/16/17 at 22:30 Morphine Sulfate 2 mg 1X ONCE IV Last administered on 03/16/17 22:51; Start 03/16/17 at 22:45; Stop 03/16/17 at 22:46; Status DC Active Scripts Active Vitals/I & O Vital Sign - Last 24 Hours 03/17/17 03/17/17 03/17/17 03/17/17 19:20 19:55 22:35 23:00 Temp 98.0 97.8 98.0 97.8 Pulse 97 86 Resp 18 14 18 B/P (MAP) 153/95 (114) 128/84 (99) Pulse Ox 93 94 O2 Delivery Room Air Room Air Room Air Room Air 03/18/17 03/18/17 03/18/17 03/18/17 03:00 06:30 07:00 08:00 Temp 97.6 98.6 97.6 98.6 Pulse 67 64 Resp 18 16 18 B/P (MAP) 131/79 (96) 137/80 (99) Pulse Ox 95 95 O2 Delivery Room Air Room Air Room Air Room Air 03/18/17 03/18/17 03/18/17 03/18/17 10:24 11:24 11:28 14:18 Temp 97.5 97.5 Pulse 60 Resp 16 18 18 16 B/P (MAP) 143/89 (107) Pulse Ox 97 O2 Delivery Room Air Room Air Room Air Room Air Intake and Output 03/17/17 03/17/17 03/18/17 15:00 23:00 07:00 Intake Total 310 ml 1110 ml Balance 310 ml 1110 ml ASHWINI BRUNNER III DO Mar 18, 2017 15:31
--- NOTE | 2017-03-18 23:45 | CONS ---
DATE OF CONSULTATION: 03/18/2017 ATTENDING PHYSICIAN: Awais Millard MD REQUESTING PHYSICIAN: The patient was seen at the request of Dr. Macdonald for rehab evaluation. HISTORY OF PRESENT ILLNESS: This is a 56-year-old male known to me. The patient with chronic lower back pain going on for about 10 years. He started having increasing back pain, unable to get up, admitted through the Emergency Room on 03/17/2017. The patient denies any specific injury. He denies any tingling, numbness sensation in the extremities or any trouble with his bowel or bladder control. The patient has been taking Flexeril and hydrocodone on as needed basis before and he is using lumbar corset. MRI scan of the lumbar spine failed to reveal any significant change from the last study done in April of this year and again in 2014. It revealed mild degenerative disk disease at L4-L5 and L5-S1 without any neural foraminal or central spinal stenosis, previously seen small extrusion centrally is not quite visualized at this time. The patient had very minimal disk osteophyte complex in the inferior right neural foramen. He is feeling much better and has been getting up and walking. PAST MEDICAL HISTORY: Includes carcinoma of skin. He is not known allergic to any medication. He had a family history of diabetes mellitus. PHYSICAL EXAMINATION: Today revealed a middle-aged male. He is obese. He is in no acute distress. He is alert, oriented to time, place, person and circumstance and follows commands appropriately, moves all 4 extremities voluntarily where he had 5/5 grade muscle strength and deep tendon reflexes are 2+ and symmetrical and he had equal perception of touch and pinprick sensation bilaterally. He had painful limited movements of the lumbar spine without any paraspinal muscle spasm and no significant tenderness to palpation over lumbar spine or paraspinal muscles or sacroiliac joint area or gluteal muscles or trochanteric bursa area. He had pain free range of motion of both hip joints. He is independent with his mobility and is using proper body mechanics during mobility. ASSESSMENT: Chronic lower back pain with recent exacerbation from degenerative disk disease and degenerative joint disease of lumbar vertebrae without any clinical evidence of ongoing lumbar radiculopathy. RECOMMENDATIONS: I have reviewed with him again a home program of physical modalities and stretching exercises and proper body mechanics and to let him go home with Flexeril and hydrocodone on as needed basis and I have also given him prescription for a new lumbar corset as old one he had it for about [address] Macdonald, appreciate asking me to participate in the care of this interesting patient. I will be glad to follow him with you as needed for the rehabilitation. JULIAN COLLAZO MD DR: USAMA/hailey JOB#: [id number] / [id number]
--- NOTE | 2017-03-27 10:34 | DS ---
DATE OF DISCHARGE: 03/18/2017 ADMISSION DIAGNOSIS: Acute on chronic back pain. DISCHARGE DIAGNOSES: Resolving acute on chronic back pain with radiculopathy. HOSPITAL COURSE: The patient is a pleasant 56-year-old male, presented with back pain. He was admitted. We consulted Neurosurgery. We did imaging. No surgery was required. He did well. We discharged to home. DISPOSITION: Home. ACTIVITY: As tolerated. DIET: Low sodium. MEDICATIONS: Please see the MRAD. TOTAL TIME: 34 minutes. ASHWINI BRUNNER DO DR: PARADISE/hailey JOB#: [id number] / [id number]
== END 2017-03-18 17:40 | disposition home or self-care (01) | DRG 552 ==
LOC: ER 21:53 → 4 NORTH 22:50
PROVIDERS: ADMIT Internal Medicine; ATTEND Internal Medicine
DX: M47.816 Spondylosis without myelopathy or radiculopathy, lumbar region (principal); Z68.41 Body mass index [BMI] 40.0-44.9, adult; G89.29 Other chronic pain; M51.36 Other intervertebral disc degeneration, lumbar region; Z85.828 Personal history of other malignant neoplasm of skin; Z83.3 Family history of diabetes mellitus; E66.9 Obesity, unspecified
CPT/HCPCS: 36415; 72148; 80053; 81001; 85025; J2270; J2930

== ENCOUNTER → 2017-10-01 | Outpatient (CLI) | payer OTHER | END | disposition home or self-care (01) | LOC: KCIC MRI 15:56 | DX: M23.361 Other meniscus derangements, other lateral meniscus, right knee (principal) | CPT/HCPCS: 73721 ==